=== PATIENT | male | born 1980 | race Caucasian/White ===

== ENCOUNTER 2025-01-14 08:42 | Emergency (ER) | payer OTHER, SELFPAY ==
[2025-01-14] VITALS (22 sets, daily range): BP systolic 108–152; BP diastolic 67–105
--- NOTE | 2025-01-14 09:15 | ED.GENMED ---
History of Present Illness
General
Chief Complaint: Cardiac Symptoms
Source: patient
Time Seen by Provider: 01/14/25 08:58
History of Present Illness
History of Present Illness:
44-year-old male presents to the emergency room complaining of palpitations. Patient awoke this morning at 7 AM and was experiencing palpitations. He took a 'reading' on his phone which told him he had atrial fibrillation and should seek medical
care. Patient denies true chest pain or tightness. Denies shortness of breath. Patient has a history of significant cervical disc disease for which she has had previous fusion. He has been experiencing some paresthesias and numbness in his left
arm and so he is on 'high doses' of gabapentin. He does have an MRI scheduled.
Phy Exam
Physical Exam
Physical Exam:
General: Awake, Alert, Oriented X3. No acute distress.
Vitals: Tachycardic
Head: Atraumatic
Eyes: Pupils equal, EOMI
Throat: Airway intact, no exudates
Neck: Trachea midline
Lungs: Clear and equal b/l
Heart: Regular rate, no murmurs
Abd: Soft, Nontender, No pulsatile mass
Neuro: Nonfocal
Skin: Warm, dry, no rash
Extremities: pulses equal b/l, no edema
Scores
[id number] Score for Afib Stroke Risk
Age in Years (65=0, 65-74=1, >/=75=2): <65
Sex (Female=+1): Male
Congestive Heart Failure History (Yes=+1): No
Hypertension History (Yes=+1): No
Stroke/TIA/Thromboembolism History (Yes=+2): No
Vascular Disease History (Yes=+1): No
Diabetes Mellitus (Yes=+1): No
Score: 0
Anticoagulation Recommendations: Anticoagulation not indicated (as validated in nonvalvular afib). Consider anticoagulation irrespective of score in patients with HCM
Course
Orders/Labs/Results
Orders:
Orders
01/14/25 08:52
Electrocardiogram (*1) Urgent
Reason for Study: Atrial Fibrillation
EKG- Treatment ONCE
01/14/25 09:15
Diltiazem 125 mg/125 ml Nss [Cardizem] 125 mg in 125 ml IV NOW
Initial dose in mg/hr, then titrate:: 5
Titrate to keep:: Heart rate 80-100 bpm
Titrate by mg/hr:: 5 mg/hr
Frequency of titrations (minutes):: 15
Maximum dose in mg/hr:: 15
Diltiazem HCl [Cardizem] 20 mg IV NOW STA
Diltiazem HCl [Cardizem] 25 mg .ROUTE .STK-MED ONE
01/14/25 09:16
Diltiazem 125 mg/125 ml Nss [Cardizem] 125 mg in 125 ml .ROUTE .STK-MED
01/14/25 09:20
Basic Metabolic Panel Urgent
Complete Blood Count/No Diff Urgent
TSH Reflex To Free T4 Urgent
01/14/25 11:03
Propofol [Diprivan] 20 ml .ROUTE .STK-MED
01/14/25 11:33
EKG [Electrocardiogram (*1)] Urgent
Reason for Study: Abnormal EKG
01/14/25 11:34
EKG- Treatment ONCE
01/14/25 11:37
Apixaban [Eliquis] 5 mg PO NOW STA
Abnormal Lab Results
01/14/25
09:20
Hgb 18.2 H g/dL
(13.0-18.0)
MCH 31.1 H pg
(27.0-31.0)
MPV 11.3 H fL
(7.4-10.4)
Chloride 110 H mmol/L
(98-107)
Glucose 132 H mg/dl
(70-99)
01/14/25 09:20
01/14/25 09:20
Vital Signs
Initial and Last Documented VS:
Initial Vital Signs
Temp Pulse Resp BP Pulse Ox
98 F 74 16 152/98 100
01/14/25 08:49 01/14/25 08:49 01/14/25 08:49 01/14/25 08:49 01/14/25 08:49
Last Documented Vital Signs
Temp Pulse Resp BP Pulse Ox
98.2 F 68 16 112/67 99
01/14/25 12:58 01/14/25 12:58 01/14/25 12:58 01/14/25 12:58 01/14/25 12:58
Procedures
Cardioversion
Indication:: Afib
Synchronized?: Yes
Energy Used: 200 joules
Successful?: Yes
ASA Risk Score: Class II
Any reaction or bad outcome to prior sedation/anesthesia?: No history of a reaction
Sedation level to be attained: moderate
Chart and allergies reviewed: Yes
Patient reassessed prior to sedation: Yes
Time out completed at (validating right patient & procedure): 11:26
History of difficult intubation: No
Airway free of obstruction: Yes
Patient has a gag reflex: Yes
Patient is able to open mouth: Yes
Patient has no dentures: Yes
Patient has no loose teeth: Yes
Medication administered by Provider during Moderate Sedation: IV Propofol (mg)
Total dose administered: 100
Time drug administered: 11:26
Start Time: 11:26
Stop Time: 11:36
MDM/Problems Addressed
Differential Diagnosis Includes:
SVT, A-fib with rapid ventricular response, frequent PACs.
MDM/Problems Addressed:
Patient presents with palpitations and rapid heart rate for over 2 hours prior to arrival. EKG shows A-fib. He was rate controlled with Cardizem but did not convert. Given the [id number] of 0 I believe he is a good candidate for cardioversion.
We will cover with 2 weeks of apixaban status post cardioversion. Patient tolerated sedation and cardioversion well. He is discharged in sinus rhythm.
*Pulse Oximetry
Patient hypoxic: no
*EKG
Interpreted by ED Provider?: Yes
Heart Rate: 160
Rate: tachycardiac
Rhythm: a-fib
[place]: normal axis
Interval: normal interval
QRS Pattern: normal QRS
Ischemia: no ischemia
*Seasonal Package Handler Interpretation
Rate: tachycardiac
Interpretation: abnormal
Rhythm: a-fib
*Critical Care Note
Total Time (30-74mins, 75-104mins- exclusive of procedures): Not Applicable
ED Attending Note
-
Portions of this chart may have been created with voice recognition software.� Occasional wrong word or��sound alike� substitutions may have occurred due to the inherent limitations of voice recognition software.
Discharge Plan
Departure
Patient Disposition: Home (Routine Discharge)
Date of Disposition: 01/14/25
Time of Disposition: 12:14
Patient with high blood pressure during this ER visit?: Yes
Condition: Good
Discharge Problem:
Paroxysmal A-fib
Instructions: Atrial fibrillation and atrial flutter - ED discharge instructions, Sedation for procedures in adults - Discharge instructions, BLOOD PRESSURE
Prescriptions:
New
Eliquis 5 mg tablet
5 mg PO BID Qty: 14 0RF
No Action
oxycodone 5 mg tablet
5 mg PO TID PRN (Reason: Pain) Qty: 10 0RF
gabapentin 100 mg Capsule
100 mg PO TID PRN (Reason: pain)
Referrals:
Cesar Romeo DO [Family Provider]
Joyce Macias MD [Active]
Activity Restrictions/Additional Instructions:
You were found to have atrial fibrillation. We performed a procedure called a synchronized cardioversion which has now got you back into a normal rhythm. You need to take oral blood thinners for 2 weeks after this procedure. I will send a
prescription for Eliquis to your pharmacy. Take 1 pill twice a day for 2 weeks. It is important you follow-up with a director of teaching and learning. I have given you contact information for one of our director of teaching and learning, Dr. Macias. Call whichever director of teaching and learning you
decide to follow-up with later today or in the morning to arrange a follow-up appointment. Return to the emergency room if you feel like the palpitations return or you have any other concerns.
Interventions
Interventions:
*Risk Screen - Suicide Last Done: 01/14/25 09:13
*General Assessment Last Done: 01/14/25 09:13
*Neglect/Abuse Screening Last Done: 01/14/25 09:13
*ED- Fall Risk Assessment Last Done: 01/14/25 09:24
*ED COVID-19 Vaccine History Last Done: 01/14/25 09:24
*Nursing Disposition Last Done: 01/14/25 12:58
ED- Pulmonary Assessment Last Done: 01/14/25 09:25
ED- Cardiac Assessment Last Done: 01/14/25 09:25
Discharge Date and Time
Discharge Date/Time: 01/14/25 13:00
Print Language: JAPANESE
[2025-01-14] MEDS: CARDIZEM 20 MG IV (09:16)
[2025-01-14] MEDS: CARDIZEM 125 IV (09:17)
[2025-01-14 09:38] LABS: Hemoglobin 18.2 g/dL (13.0-18.0); Mean Corp Hgb Conc. 35.7 g/dL (33.0-37.0); Mean Corpuscular Hgb 31.1 pg (27.0-31.0); Mean Platelet Volume 11.3 fL (7.4-10.4); Platelet Count 168 10^3/uL (130-400); Red Blood Cell Count 5.86 10^6/uL (4.70-6.10); Red Cell Dist. Width 11.7 % (11.5-14.5); White Blood Cell Count 6.7 10^3/uL (4.8-10.8)
[2025-01-14 10:10] LABS: Blood Urea Nitrogen 18 mg/dl (9-20); Calcium 9.3 mg/dl (8.4-10.2); Carbon Dioxide 24 mmol/L (22-30); Chloride 110 mmol/L (98-107); Glucose 132 mg/dl (70-99); Potassium 3.9 mmol/L (3.5-5.1); Sodium 143 mmol/L (135-145); eGFR > 60.00
[2025-01-14 10:27] LABS: TSH Reflex To Free T4 1.01 uIU/ml (0.47-4.68)
--- NOTE | 2025-01-14 11:30 | EDRN ---
Patient cardioverted with 200 J by . Patient in sinus rhythm.
[2025-01-14] MEDS: ELIQUIS 5 MG PO (12:29)
--- NOTE | 2025-01-14 12:56 | EDRN ---
Reviewed discharge instructions with patient. Verbalized understanding. Ambulated with steady gait to the lobby.
== END 2025-01-14 13:00 | disposition home or self-care (01) ==
LOC: EMR 08:42
PROVIDERS: EMERGENCY PHYSICIAN Emergency Medicine; FAMILY PHYSICIAN Family Medicine
DX: I48.0 Paroxysmal atrial fibrillation (principal)
CPT/HCPCS: 92960; 99285; 96374; 99152; 80048; 84443; 85027; 93005

== ENCOUNTER 2025-01-17 22:12 | Emergency (ER) | payer OTHER, SELFPAY ==
[2025-01-17 22:15] VITALS: BP 165/92
[2025-01-17 22:44] LABS: % Basophils 0.3 % (0-2); % Eosinophils 0.9 % (0-6); % Immature Granulocytes 0.3 % (0-0.5); % Lymphocytes 35.9 % (20.5-51.1); % Monocytes 10.7 % (1.7-9.3); % Neutrophils 51.9 % (42.2-75.2); Absolute Eosinophils 0.1 10^3/uL (0-0.7); Absolute Lymphocytes 2.4 10^3/uL (1.2-3.4); Absolute Monocytes 0.7 10^3/uL (0.1-0.6); Absolute Neutrophils 3.5 10^3/uL (1.4-6.5); Mean Corp Hgb Conc. 34.7 g/dL (33.0-37.0); Mean Corpuscular Hgb 30.2 pg (27.0-31.0); Mean Corpuscular Volume 87.2 fL (80.0-94.0); Mean Platelet Volume 11.2 fL (7.4-10.4); Nucleated Red Blood Cells % 0 % (-); Platelet Count 171 10^3/uL (130-400); Red Blood Cell Count 5.62 10^6/uL (4.70-6.10); Red Cell Dist. Width 11.7 % (11.5-14.5); White Blood Cell Count 6.8 10^3/uL (4.8-10.8)
[2025-01-17 22:59] LABS: Alkaline Phosphatase 51 U/L (38-126); Blood Urea Nitrogen 27 mg/dl (9-20); Calcium 9.1 mg/dl (8.4-10.2); Carbon Dioxide 29 mmol/L (22-30); Chloride 107 mmol/L (98-107); Estimated Creatinine Clearance 109 ml/min; Glucose 110 mg/dl (70-99); Potassium 3.5 mmol/L (3.5-5.1); Sodium 142 mmol/L (135-145); Total Protein 7.4 g/dl (6.3-8.2); eGFR > 60.00
[2025-01-17 23:00] VITALS: BP 147/93
[2025-01-17 23:00] LABS: ALT (SGPT) 33 U/L (0-50); AST (SGOT) 24 U/L (17-59); Albumin 4.7 g/dl (3.5-5.0); Total Bilirubin 1.1 mg/dl (0.2-1.3)
[2025-01-17 23:07] LABS: INR 1.03; PT 13.9 Sec (11.4-14.6)
[2025-01-18] VITALS: BP 138/88
--- NOTE | 2025-01-18 00:28 | ED.GENMED ---
History of Present Illness
General
Chief Complaint: Rectal Bleeding
Time Seen by Provider: 01/17/25 22:23
History of Present Illness
History of Present Illness:
44-year-old male presents the emergency department for evaluation of black stool. He was in this emergency department earlier this week for new onset A-fib and underwent cardioversion. He was started on Eliquis and states the day after starting
Eliquis he noted diarrhea and ultimately today black stool. He does admit to taking Kaopectate for the symptoms. Reports generalized abdominal discomfort, no sharp upper abdominal pain. Does admit to heavy use of NSAIDs for low back pain in the
weeks prior to starting Eliquis but has discontinued this since Eliquis use.
Review of Systems
Review of Systems
Allergies reviewed?: Yes
All Other Systems: ROS reviewed and negative except as documented in HPI and ROS
Phy Exam
Physical Exam
Physical Exam:
GEN: Well appearing, NAD, WDWN
HEENT: Oral mucosa moist, no scleral icterus
Cardiac: Regular rate and rhythm
Lung: No respiratory distress, no tachypnea
Rectal: Brown stool in the rectal vault, heme-negative
MSK: No gross deformity or injuries
Skin: Good color, no pallor or jaundice, no rashes
Neuro: AO x3, moves all extremities freely
Psych: Calm, cooperative
Course
Orders/Labs/Results
Orders:
Orders
01/17/25 22:33
Type+Screen Urgent
Complete Blood Count/With Diff Urgent
Comprehensive Metabolic Panel Urgent
Prothrombin Time Urgent
01/17/25 22:47
ABO2 Urgent
BBK Wristband Number:
Associate notified that ABO2 has been ordered: [id number]
Date: 01/17/25
Time: 22:48
In Home Tutor ID: [id number]
Abnormal Lab Results
01/17/25
22:33
MPV 11.2 H fL
(7.4-10.4)
Absolute Monos (auto) 0.7 H 10^3/uL
(0.1-0.6)
Monocytes % 10.7 H %
(1.7-9.3)
BUN 27 H mg/dl
(9-20)
Glucose 110 H mg/dl
(70-99)
01/17/25 22:33
01/17/25 22:33
Vital Signs
Initial and Last Documented VS:
Initial Vital Signs
Temp Pulse Resp BP Pulse Ox
97.9 F 65 18 165/92 97
01/17/25 22:15 01/17/25 22:15 01/17/25 22:15 01/17/25 22:15 01/17/25 22:15
Last Documented Vital Signs
Temp Pulse Resp BP Pulse Ox
97.9 F 64 17 138/88 97
01/17/25 22:15 01/18/25 00:43 01/18/25 00:43 01/18/25 00:43 01/18/25 00:43
MDM/Problems Addressed
MDM/Problems Addressed:
Patient has heme-negative stool and stable hemoglobin counts, I suspect the dark stool is on the basis of Kaopectate use. Will recommend continuation of Eliquis until cardiology follow-up on Sunday. He certainly could have some component of NSAID
induced gastritis however at this time there is no evidence for active bleeding
*Critical Care Note
Total Time (30-74mins, 75-104mins- exclusive of procedures): Not Applicable
ED Attending Note
-
Portions of this chart may have been created with voice recognition software.� Occasional wrong word or��sound alike� substitutions may have occurred due to the inherent limitations of voice recognition software.
Discharge Plan
Departure
Patient Disposition: Home (Routine Discharge)
Date of Disposition: 01/18/25
Time of Disposition: 00:28
Patient with high blood pressure during this ER visit?: No
Discharge Problem:
Dark stools
Instructions: How to take anticoagulants safely
Prescriptions:
No Action
oxycodone 5 mg tablet
5 mg PO TID PRN (Reason: Pain) Qty: 10 0RF
gabapentin 100 mg Capsule
100 mg PO TID PRN (Reason: pain)
Eliquis 5 mg tablet
5 mg PO BID Qty: 14 0RF
Referrals:
Cesar Romeo DO [Family Provider, [facility]]
Activity Restrictions/Additional Instructions:
Your dark stool is likely a product of Kaopectate use. Continue the Eliquis twice daily, follow-up with cardiology as planned on Sunday to discuss further anticoagulant use. If you develop shortness of breath, dizziness, or worsening dark stool
despite no longer using Kaopectate do not hesitate to return to the emergency department for reevaluation
Interventions
Interventions:
*Risk Screen - Suicide Last Done: 01/17/25 22:13
*General Assessment Last Done: 01/17/25 22:35
*Neglect/Abuse Screening Last Done: 01/17/25 22:13
*ED COVID-19 Vaccine History Last Done: 01/17/25 22:35
*Nursing Disposition Last Done: 01/18/25 00:45
YY-Aykwyp-Xypqbdwoip Assessment Last Done: 01/17/25 22:35
ED- Cardiac Assessment Last Done: 01/17/25 22:35
ED- Pulmonary Assessment Last Done: 01/17/25 22:35
Discharge Date and Time
Discharge Date/Time: 01/18/25 00:46
Print Language: AZERI
[2025-01-18 00:43] VITALS: BP 138/88
== END 2025-01-18 00:46 | disposition home or self-care (01) ==
LOC: EMR 22:12
PROVIDERS: Physician Assistant; EMERGENCY PHYSICIAN Emergency Medicine; FAMILY PHYSICIAN Family Medicine
DX: R19.5 Other fecal abnormalities (principal); I48.91 Unspecified atrial fibrillation; Z79.01 Long term (current) use of anticoagulants
CPT/HCPCS: 99283; 80053; 85025; 85610; 86850; 86900; 86901

== ENCOUNTER 2025-03-17 17:07 | Emergency (ER) | payer OTHER, SELFPAY ==
[2025-03-17 17:08] VITALS: BP 176/113
[2025-03-17 17:33] LABS: Hematocrit 47.4 % (39.0-52.0); Hemoglobin 16.3 g/dL (13.0-18.0); Mean Corp Hgb Conc. 34.4 g/dL (33.0-37.0); Mean Corpuscular Volume 88.4 fL (80.0-94.0); Nucleated Red Blood Cells % 0 % (-); Platelet Count 167 10^3/uL (130-400); Red Cell Dist. Width 12.8 % (11.5-14.5)
[2025-03-17 18:01] LABS: ALT (SGPT) 29 U/L (0-50); AST (SGOT) 19 U/L (17-59); Albumin 4.8 g/dl (3.5-5.0); Alkaline Phosphatase 72 U/L (38-126); Blood Urea Nitrogen 27 mg/dl (9-20); Calcium 9.4 mg/dl (8.4-10.2); Carbon Dioxide 25 mmol/L (22-30); Chloride 103 mmol/L (98-107); Glucose 136 mg/dl (70-99); Potassium 3.4 mmol/L (3.5-5.1); Sodium 137 mmol/L (135-145); Total Protein 7.6 g/dl (6.3-8.2); eGFR > 60.00
[2025-03-17 19:25] VITALS: BMI 28.4
[2025-03-17 19:32] VITALS: BP 143/99
[2025-03-17 20:00] VITALS: BP 136/75
[2025-03-17 21:00] VITALS: BP 132/85
[2025-03-17 21:04] LABS: D-Dimer < 0.27 ug/mlFEU (0.00-0.50)
[2025-03-17 21:08] LABS: Troponin I 0.017 ng/ml
--- NOTE | 2025-03-17 21:23 | ED.GENMED ---
History of Present Illness
General
Chief Complaint: Cardiac Symptoms
Source: patient
Exam Limitations: none
Time Seen by Provider: 03/17/25 19:51
Nursing documentation reviewed up to this point in time: agreed with
History of Present Illness
History of Present Illness:
see MDM
Phy Exam
Physical Exam
Physical Exam:
GENERAL: Alert , in no apparent distress
EYE: pupils equal and reactive
NECK: Supple
ENT: o/p clr, mmm.
CARDIAC: Regular rate and rhythm .
LUNGS: Clear breath sounds bilaterally, no acute respiratory distress, no wheezes/rales/rhonchi
ABDOMEN: Soft, without focal tenderness, no r/g, no cvat, normal bowel sounds
NEUROLOGICAL: Alert and oriented, no focal neuro deficits
SKIN: Warm and dry, skin intact.
MUSCULOSKELETAL: No edema, well perfused. neg esteban's sign
PSYCH: Normal and appropriate interaction.
Course
Orders/Labs/Results
Orders:
Orders
03/17/25 17:08
Electrocardiogram (*1) Urgent
Reason for Study: Palpitations
EKG- Treatment ONCE
03/17/25 17:22
Complete Blood Count/With Diff Urgent
Comprehensive Metabolic Panel Urgent
03/17/25 20:20
Electrocardiogram (*1) Urgent
Reason for Study: Chest Pain
EKG- Treatment ONCE
03/17/25 20:28
D-Dimer Urgent
Troponin I Urgent
Abnormal Lab Results
03/17/25
17:22
MPV 11.4 H fL
(7.4-10.4)
Potassium 3.4 L mmol/L
(3.5-5.1)
BUN 27 H mg/dl
(9-20)
Glucose 136 H mg/dl
(70-99)
03/17/25 17:22
03/17/25 17:22
Vital Signs
Initial and Last Documented VS:
Initial Vital Signs
Temp Pulse BP Pulse Ox
36.8 C 121 176/113 97
03/17/25 17:08 03/17/25 17:08 03/17/25 17:08 03/17/25 17:08
Last Documented Vital Signs
Temp Pulse Resp BP Pulse Ox
36.8 C 102 18 149/85 98
03/17/25 17:08 03/17/25 21:43 03/17/25 21:43 03/17/25 21:43 03/17/25 21:43
MDM/Problems Addressed
Differential Diagnosis Includes:
see MDM
MDM/Problems Addressed:
Note:
CHIEF COMPLAINT(S)
Vision disturbances, anxiety, palpitations, and elevated blood pressure.
HISTORY OF PRESENT ILLNESS
Patient is a 45-year-old male with a history of paroxysmal A-fib status post cardioversion in December no longer anticoagulated presents for palpitations and elevated blood pressure. Patient says this morning he gave himself a low-dose of Wegovy, this
is restarting Wegovy injections from when he had them months ago. The injection was self-administered around 7 AM. Patient proceeded to have a normal day. He said around 11:30 AM he suddenly felt lightheaded and noticed he was having trouble
focusing with his vision. He quickly became anxious, had an elevated heart rate and checked his blood pressure and it was 170/90. He checked it again and it went up and then up again. Patient became very anxious, and decided to come to the
emergency department. He was feeling quite anxious when he got here and his heart rate and blood pressure were both elevated. He got a little nauseated. Symptoms fully resolved while waiting to be seen. He now feels fine.
After his A-fib episode
he patient followed up with a electrical accessories i assembler and completed a sleep study and stress test, reporting results to be normal apart from a minor obstruction not requiring treatment.
Patient says he did use his Apple Watch today to look for signs of A-fib and there were none.
He never fully passed out, never had a headache, never lost vision, never felt weak. He also did not feel like he was stressed about anything at the moment.
Patient's previous injections of Wegovy were tolerated months ago without any issues
- EYES
Visual disturbance described as impaired focus.
- CARDIOVASCULAR
Initially elevated heart rate and blood pressure, both of which later stabilized.
Nursing notes reviewed and vital signs reviewed.
- GENERAL
The patient appeared anxious but alert and oriented.
- NEUROLOGICAL
No loss of consciousness reported.
- RESPIRATORY
Panic-induced sensation affecting breathing.
PLAN
The plan includes performing an additional cardiac marker test and an Electrocardiogram (ECG) to rule out any cardiac event. The patient was advised to monitor symptoms and inform the electrical accessories i assembler of the episode. Discussions with a primary care
provider for further investigation into potential panic attack management were encouraged if episodes recur.
DIFFERENTIAL DIAGNOSIS
The Differential Diagnosis includes, in no particular order and is not limited to:
1. Anxiety or panic attack
2. Hypertensive episode
3. Atrial fibrillation recurrence
4. Dehydration
5. Medication side effects (e.g., from semaglutide)
6. Paroxysmal supraventricular tachycardia
7. Sinus tachycardia
8. Visual disturbances due to other causes
9. Electrolyte imbalance
2130
pt with elevated HR and BP and symptoms onset around 430 pm
he also felt lightheaded
no vision loss or headache
no chest pain or pleuritic pain
no syncope
here he feels fine
the symptoms resolved while waiting
he was sinus tach on arrival and hypertensive
pt say she felt like he was panicking at the time but doesn't know why or what happened to him
unlikely to have been AF episode since he used his apple watch
his ekg is sinus rhythm on repeat and a trop is 0.017 - this is still neg biomarker; could have been minimally elevated but still WNL becuase of tachycardia
since this was drawn 4+ hours from sypmtoms, and with no cardiac RF and neg stress test recently within the past 2 mo, we felt it was adequate rule out
pt had neg d dimer
he is sypmtom free here
d/w ed attending dr. lowe who agreed with pt d/c home to outpatient cards f/u.
*Pulse Oximetry
SaO2: 94
Oxygen Mode of Delivery: Room air
Patient hypoxic: no (97)
*Critical Care Note
Total Time (30-74mins, 75-104mins- exclusive of procedures): Not Applicable
ED Attending Note
-
Portions of this chart may have been created with voice recognition software.� Occasional wrong word or��sound alike� substitutions may have occurred due to the inherent limitations of voice recognition software.
Discharge Plan
Departure
Patient Disposition: Home (Routine Discharge)
Date of Disposition: 03/17/25
Time of Disposition: 21:36
Patient with high blood pressure during this ER visit?: No
Condition: Fair
Covid-19: Not Applicable
Discharge Problem:
Palpitations, Elevated blood pressure reading
Instructions: Palpitations - ED discharge instructions, BLOOD PRESSURE
Prescriptions:
No Action
oxycodone 5 mg tablet
5 mg PO TID PRN (Reason: Pain) Qty: 10 0RF
gabapentin 100 mg Capsule
100 mg PO TID PRN (Reason: pain)
Eliquis 5 mg tablet
5 mg PO BID Qty: 14 0RF
Referrals:
Cesar Romeo DO [Family Provider, Family Practice]
Activity Restrictions/Additional Instructions:
It is unclear the cause of your symptoms. It could have been a reaction to the Wegovy although it is less likely since you have had Wegovy before. I would be cautious that if you had another episode after your second injection that you need to
stop this. It also could have been a spike in your blood pressure or you could have been anxious. Regardless your workup here looks reassuring. You had an negative D-dimer which rules out a blood clot. Your troponin enzyme is minimally elevated
but within normal limits and this could be just from your elevated heart rate.
You should call your electrical accessories i assembler tomorrow for an appointment. Tell them that you were in the ER for palpitations and elevated blood pressure. Return for any concerns like repeated blood pressure problems, shortness of breath, passing out, chest
pain, or any concerns
Interventions
Interventions:
*Risk Screen - Suicide Last Done: 03/17/25 19:25
*General Assessment Last Done: 03/17/25 19:25
*Neglect/Abuse Screening Last Done: 03/17/25 19:25
*ED- Fall Risk Assessment Last Done: 03/17/25 19:25
*ED COVID-19 Vaccine History Last Done: 03/17/25 19:25
*Nursing Disposition Last Done: 03/17/25 21:44
ED- Pulmonary Assessment Last Done: 03/17/25 19:25
ED- Cardiac Assessment Last Done: 03/17/25 19:25
Discharge Date and Time
Discharge Date/Time: 03/17/25 22:02
Print Language: BANGLADESHI
[2025-03-17 21:43] VITALS: BP 149/85
== END 2025-03-17 22:02 | disposition home or self-care (01) ==
LOC: EMR 17:07
PROVIDERS: Emergency Medicine; Physician Assistant; EMERGENCY PHYSICIAN Emergency Medicine; FAMILY PHYSICIAN Family Medicine
DX: R00.2 Palpitations (principal); R03.0 Elevated blood-pressure reading, without diagnosis of hypertension; I48.0 Paroxysmal atrial fibrillation
CPT/HCPCS: 99284; 80053; 84484; 85025; 85379; 93005

== ENCOUNTER 2025-06-20 08:50 | Emergency (ER) | payer OTHER, SELFPAY ==
[2025-06-20 08:58] VITALS: BP 141/78
--- NOTE | 2025-06-20 10:35 | ED.GENMED ---
History of Present Illness
General
Chief Complaint: Anal/Rectal Problem
Source: patient
Exam Limitations: none
Time Seen by Provider: 06/20/25 09:41
Nursing documentation reviewed up to this point in time: agreed with
History of Present Illness
History of Present Illness:
Patient is a 45-year-old male with past medical history of atrial fibrillation treated with cardioversion, not currently anticoagulated, who presents to the emergency department for evaluation of rectal pain consistent with a previous perianal
abscess that he had about 10 years ago which required incision and drainage at an outside emergency department. Patient reports his symptoms this time started 3 days ago and have gradually worsened. He reports that he sits for long periods of time
for his job and it has become increasingly difficult to do so secondary to pain. Patient has been doing warm Epsom salt baths without improvement in his symptoms. Patient denies any drainage from the site, denies any bleeding from the site.
Patient denies additional symptoms such as fevers, chills, chest pain, shortness of breath, abdominal pain, nausea, vomiting.
Past History
Past History
ED Past Medical History: Arrthythmia (atrial fibrillation)
ED Past Surgical History: Orthopedic (Cervical fusion surgery)
Social History
Tobacco: Non-smoker
Alcohol: None
Drug: None
Employment: Employed
Review of Systems
Review of Systems
Allergies reviewed?: Yes
All Other Systems: ROS reviewed and negative except as documented in HPI and ROS
Constitutional: Reports no symptoms
EENT: Reports no symptoms
Respiratory: Reports no symptoms
Cardiac: Reports no symptoms
ABD/GI: Reports other (rectal pain)
: Reports no symptoms
Musculoskeletal: Reports no symptoms
Skin: Reports no symptoms
Neurological: Reports no symptoms
Endocrine: Reports no symptoms
Hematologic/Lymphatic: Reports no symptoms
Psychiatric: Reports no symptoms
Phy Exam
General Physical Exam
General Presentation: well appearing and no apparent distress
General Skin: warm and dry
General Habitus: normal
General Mental: alert
General Hydration: appears well hydrated
ENT Exam
ENT Exam: EOMI
Pulmonary Exam
Pulmonary Exam: no respiratory distress
Gastrointestinal Exam
Gastrointestinal Exam: normal bowel sounds, non tender, soft, no organomegaly, no pulsatile mass and non distended
Rectal Exam: other (small area of induration and erythema to the 12 o'clock position of the rectum with active drainage of foul smelling purulence, there is overlying ttp, no fluctuance or ttp on SCOOTER)
Neurological Exam
Neurological Exam: alert, oriented x3, no motor deficits and speech normal
Musculoskeletal Exam
Musculoskeletal Exam: full ROM, no edema and other (ecchymosis to the inferior aspect of the right thigh 2/2 previous injury which pt is currently under the care of a provider for and is improving)
Skin Exam
Skin Exam: normal color, warm/dry, no rash and no petechia
Psychiatric Exam
Psychiatric Exam: normal mood/affect
Course
Vital Signs
Initial and Last Documented VS:
Initial Vital Signs
Temp Pulse Resp BP Pulse Ox
99.4 F 101 16 141/78 99
06/20/25 08:58 06/20/25 08:58 06/20/25 08:58 06/20/25 08:58 06/20/25 08:58
Last Documented Vital Signs
Temp Pulse Resp BP Pulse Ox
99.4 F 101 16 141/78 99
06/20/25 08:58 06/20/25 08:58 06/20/25 08:58 06/20/25 08:58 06/20/25 10:37
*Pulse Oximetry
SaO2: 99
Oxygen Mode of Delivery: Room air
Patient hypoxic: no
*Critical Care Note
Total Time (30-74mins, 75-104mins- exclusive of procedures): Not Applicable
Update Note
Update Note:
45-year-old male presents to the emergency department for evaluation of rectal pain consistent with his previous perianal abscess that required incision and drainage 10 years ago. Patient denies systemic symptoms such as fevers or chills. On
arrival, patient is mildly hypertensive, afebrile. On examination, the patient is very well-appearing, he is in no acute distress, area is as described and is consistent with an actively draining perianal abscess, no evidence of a perirectal
abscess. Given the fact that the abscess already appears to be draining sufficiently, do not feel the patient requires further incision and drainage today. Instead will recommend supportive care measures including frequent sitz baths. Will also
prescribe the patient a course of oral antibiotics. Will recommend the patient follow-up with his PCP in 2 to 3 days for reevaluation. Patient was also educated on strict return precautions, he expressed understanding of the plan and agreed.
ED Attending Note
-
Portions of this chart may have been created with voice recognition software.� Occasional wrong word or��sound alike� substitutions may have occurred due to the inherent limitations of voice recognition software.
Discharge Plan
Departure
Patient Disposition: Home (Routine Discharge)
Date of Disposition: 06/20/25
Time of Disposition: 10:51
Patient with high blood pressure during this ER visit?: Yes
Condition: Good
Covid-19: Not Applicable
Discharge Problem:
Abscess, perianal
Instructions: Anal Abscess and Fistula, Adult (DC), How to Do a Sitz Bath
Prescriptions:
New
doxycycline hyclate 100 mg tablet
100 mg PO BID 7 Days Qty: 14 0RF
Discontinued
oxycodone 5 mg tablet
5 mg PO TID PRN (Reason: Pain) Qty: 10 0RF
Eliquis 5 mg tablet
5 mg PO BID Qty: 14 0RF
No Action
gabapentin 100 mg Capsule
100 mg PO TID PRN (Reason: pain)
Referrals:
Cesar Romeo DO [Family Provider, Family Practice] - Follow up in 2-3 days
Activity Restrictions/Additional Instructions:
You were seen int he emergency department for evaluation of an abscess consistent with a perianal abscess. The abscess is already draining on its own and does not require further incision and drainage in the emergency department today. We
recommend frequent warm soaks of the area to help promote drainage. We are prescribing you a course of antibiotics and would like you to complete the entire course, even if you start to feel better. You may take medication such as ibuprofen or
Tylenol if needed for pain. We would like you to follow-up with your primary care provider in 2 to 3 days for a wound check. Please return to the emergency department if you develop increasing pain, swelling, redness, fever of 100.4 �F, or for any
other worsening or concerning symptoms.
Interventions
Interventions:
*Risk Screen - Suicide Last Done: 06/20/25 08:58
*General Assessment Last Done: 06/20/25 11:49
*Neglect/Abuse Screening Last Done: 06/20/25 08:58
*ED- Fall Risk Assessment Last Done: 06/20/25 11:49
*ED COVID-19 Vaccine History Last Done: 06/20/25 11:49
*ED Influenza Vaccine History Last Done: 06/20/25 11:49
*Nursing Disposition Last Done: 06/20/25 11:49
WI-Szwqjm-Wdcaofvyts Assessment Last Done: 06/20/25 11:49
ED-Skin Assessment Last Done: 06/20/25 11:49
Discharge Date and Time
Discharge Date/Time: 06/20/25 11:52
Print Language: BELARUSIAN
== END 2025-06-20 11:52 | disposition home or self-care (01) ==
LOC: EMR 08:50
PROVIDERS: EMERGENCY PHYSICIAN Student in an Organized Health Care Education/Training Program; FAMILY PHYSICIAN Family Medicine
DX: K61.0 Anal abscess (principal); I48.91 Unspecified atrial fibrillation; Z98.1 Arthrodesis status
CPT/HCPCS: 99282